=== PATIENT | female | born 1970 | race Caucasian/White ===

== ENCOUNTER 2018-10-07 14:30 | Outpatient (CLI) | payer OTHER ==
[~2018-10-07 14:30] MED LIST: DEPAKOTE ER500 MG PO; ZYPREXA20 MG
== END 2018-10-07 14:32 | disposition home or self-care (01) ==
LOC: MAMO-SONO 14:30
DX: Z12.31 Encounter for screening mammogram for malignant neoplasm of breast (principal)

== ENCOUNTER 2021-06-20 11:40 | Outpatient (CLI) | payer OTHER | END 2021-06-20 11:47 | disposition home or self-care (01) | LOC: MAMO-SONO 11:40 | PROVIDERS: ATTEND General Practice | DX: N64.51 Induration of breast (principal); M85.80 Other specified disorders of bone density and structure, unspecified site ==